=== PATIENT | male | born 1955 | race Caucasian/White ===

== ENCOUNTER 2018-10-16 09:24 | Emergency (ER) | payer OTHER, SELFPAY ==
[2018-10-16 09:36] VITALS: BP 136/68; PULSE 92; RESP 20; TEMP 38.6; O2SAT 97
--- NOTE | 2018-10-16 09:46 | ED.URI ---
HPI - URI/Sore Throat General Chief Complaint: Upper Respiratory Symptoms Stated Complaint: FLU? Time Seen by Provider: 10/16/18 09:46 Source: patient Mode of arrival: ambulatory Limitations: no limitations History of Present Illness HPI Narrative: This is a 63-year-old male who comes to the emergency department with complaint of fever, chills, cough that is had very mild productive sputum. Patient states that it started also scratching his throat. He states not really a sore throat. He has had a little bit of nasal congestion but feels like it is mostly in his chest. He does not really feel like it is hard for him to breathe but when he coughs it feels painful. If he is not coughing and does not really have any discomfort. Yesterday he had some nausea and dry heaves but none today. He has not had any constipation or diarrhea. He denies any urinary symptoms. He has a prior history of syphilis and was treated with penicillin. 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 He takes medication for hypertension as well as restless leg. Patient denies any allergies to medications. He used to smoke tobacco until he was about 30, he still smokes marijuana. Patient has been staying at the [facility] so he has had a lot of exposures to unknown people. Related Data Home Medications Medication Instructions Recorded Confirmed atorvastatin 10 mg PO QPM 10/16/18 10/16/18 cyclobenzaprine 10 mg PO BID PRN 10/16/18 10/16/18 doxazosin 2 - 3 mg PO QPM 10/16/18 10/16/18 metoprolol succinate 100 mg PO QPM 10/16/18 10/16/18 ropinirole 5 mg PO QPM 10/16/18 10/16/18 Previous Rx's Medication Instructions Recorded benzonatate [Tessalon Perles] 200 mg PO TID PRN #14 caplet 10/16/18 Allergies Allergy/AdvReac Type Severity Reaction Status Date / Time lisinopril Allergy Intermediate Swelling Verified 10/16/18 10:07 of Lip/Tongue/Throat Review of Systems Review of Systems ROS Unobtainable: All systems reviewed & are unremarkable except as noted in HPI and below Constitutional Reports body ache(s) (Mild), Denies chills, Reports fever(s), Denies lethargy and Denies weakness Cardiovascular Reports chest pain (With cough), Denies syncope, Denies edema, Denies irregular heart rhythm, Denies lightheadedness, Denies palpitations, Denies dyspnea, Denies dyspnea on exertion and Denies orthopnea Respiratory Reports chest congestion, Reports cough, Denies hemoptysis, Denies excessive phlegm production, Denies pain on inspiration, Reports pain with cough, Denies dyspnea, Denies dyspnea on exertion, Denies stridor and Denies wheezing Gastrointestinal Gastrointestinal: Denies abdominal pain, Denies change in bowel habits, Denies constipation, Denies diarrhea, Reports nausea (Resolved) and Reports vomiting (Dry heaves, resolved) Genitourinary Denies hematuria, Denies urinary frequency, Denies urinary hesitancy, Denies urinary incontinence and Denies urinary urgency Integumentary/Breasts Denies rash Neurologic Denies syncope and Denies weakness Endocrine Denies palpitations Allergic/Immunologic Denies wheezing PFSH Medical History HPV (human papilloma virus) anogenital infection (Chronic) Hypertension (Chronic) Restless leg (Chronic) Syphilis (acquired) (Resolved) Social History Smoking Status: Former smoker substance use type: marijuana Social History Smoking Status: Former smoker substance use type: marijuana Exam Narrative Exam Narrative: GEN: well nourished, well appearing male, alert and oriented x 3, patient appears to be in mild distress. HEENT: Atraumatic, pupils are equal round reactive to light, extraocular movements are intact, nares are clear, TMs are clear with no fluid, there is no conjunctival pallor. Throat is clear without any exudates, erythema, tonsillar enlargement or uvular deviation HEART: Regular rate and rhythm without murmur, clicks, rubs. LUNGS:Lungs clear to auscultation, no wheezes, rales, crackles, chest moves symmetrically ABD:bowel sounds normal, soft, non-tender, no guarding, rebound, rigidity, no masses noted, no hepatosplenomegaly MSCL: Non-tender, no muscle atrophy, muscles strength 5/5 upper and lower extremities, full range of motion, normal gait NEURO:CN 2-12 intact, sensation normal SKIN: no rashes. Initial Vital Signs Initial Vital Signs: Vital Signs Temperature 101.5 F H 10/16/18 09:36 Pulse Rate 92 H 10/16/18 09:36 Respiratory Rate 20 10/16/18 09:36 Blood Pressure 136/68 10/16/18 09:36 Pulse Oximetry 97 10/16/18 09:36 Course Orders Ordered: ED Orders 10/16/18 09:30 FLU A and B [Influenza A and B by PCR Rapid] Stat 10/16/18 09:53 XR chest 2V Stat Discontinued Medications Acetaminophen (Tylenol) 650 mg PO NOW ONE Stop: 10/16/18 10:00 Last Admin: 10/16/18 10:09 Dose: 650 mg Vital Signs - 8 hr 10/16/18 10:09 10/16/18 11:18 10/16/18 11:19 Temperature 101.5 F H 99.7 F H 99.7 F H Pulse Rate 79 Respiratory Rate 15 Blood Pressure [Right Arm] 137/79 [facility] - URI/Sore Throat Lab Data Attestation: I reviewed the patient's lab results. Lab Results 10/16/18 Range/Units 09:30 Influenza A & B (PCR) Negative (Negative) Imaging Data Chest x-ray: Radiologist's impression: [place] [address] XRay Report Signed Patient: KEENAN WINN [facility]#: [id number] : 5Acct:[id number] Age/Sex: 63 / MDate of Service: 10/16/18 Loc: ED Accession Number: [id number] Procedure: XR chest 2V Ordering Provider: Vandana Perdomo D.O. PROCEDURE: XR CHEST 2V INDICATIONS: fever, cough x 2 days, pain with cough. TECHNIQUE: 2 views of the chest were acquired. COMPARISON: None. FINDINGS: Surgical changes and devices: None. Lungs and pleura: Lungs are clear. No pleural effusions or pneumothorax. Mediastinum: Mediastinal contours are normal. Heart size is normal. Bones and chest wall: No suspicious bony abnormalities. Soft tissues appear unremarkable. IMPRESSION: No acute cardiopulmonary disease process. Dictated by: Osiris Sapp MD, PhD on 10/16/2018 at 10:05 Approved by: Osiris Sapp MD, PhD on 10/16/2018 at 10:06 [facility] Narrative Medical decision making narrative: Patient has fever here in the department. Improved with Tylenol. Patient has had a little bit of cold cough congestion and clear signs of pneumonia on chest x-ray. Symptomatically he has not had any productive sputum or signs of clear clinical pneumonia. Patient has not had any other symptoms that are consistent with other causes. Discussed with patient plan for watchful waiting, Tylenol and ibuprofen as needed for fevers and discussed reasons to return. Discharge Plan Departure Patient Disposition: Home Clinical Impression: Fever, URI (upper respiratory infection) Discharge Date/Time: 10/16/18 11:29 Interventions: ED Discharge Assessment Last Done: 10/16/18 11:28 Instructions: DI for Viral Upper Respiratory Infection -- Adult Activity Restrictions/Additional Instructions: Follow-up with primary care in the next 2-3 days for recheck if your symptoms are not starting to improve. Continue ibuprofen and/or Tylenol as needed for fevers. Take Tessalon Perles as prescribed, you may take 1-2 tablets every 6-8 hours as needed for cough. Make sure your getting plenty of fluids and staying hydrated. Return to the emergency department for persistent fevers, new chest pain, new shortness of breath, new abdominal pain, persistent vomiting, black or bloody stools, difficulty or painful urination or other new or concerning symptoms. Prescriptions: New benzonatate [Tessalon Perles] 100 mg capsule 200 mg PO TID PRN (Reason: cough) Qty: 14 RF: 0 No Action cyclobenzaprine 10 mg tablet 10 mg PO BID PRN (Reason: Spasms) RF: 0 atorvastatin 10 mg tablet 10 mg PO QPM RF: 0 doxazosin 1 mg tablet 2 - 3 mg PO QPM RF: 0 metoprolol succinate 100 mg tablet extended release 24 hr 100 mg PO QPM RF: 0 ropinirole 5 mg tablet 5 mg PO QPM RF: 0
--- NOTE | 2018-10-16 09:53 | DI.RAD.S_ITS ---
PROCEDURE: XR CHEST 2V INDICATIONS: fever, cough x 2 days, pain with cough. TECHNIQUE: 2 views of the chest were acquired. COMPARISON: None. FINDINGS: Surgical changes and devices: None. Lungs and pleura: Lungs are clear. No pleural effusions or pneumothorax. Mediastinum: Mediastinal contours are normal. Heart size is normal. Bones and chest wall: No suspicious bony abnormalities. Soft tissues appear unremarkable. IMPRESSION: No acute cardiopulmonary disease process. Dictated by: Osiris Sapp MD, PhD on 10/16/2018 at 10:05 Approved by: Osiris Sapp MD, PhD on 10/16/2018 at 10:06
--- NOTE | 2018-10-16 09:59 | ED_ITS ---
HPI - URI/Sore Throat General Chief Complaint: Upper Respiratory Symptoms Stated Complaint: FLU? Time Seen by Provider: 10/16/18 09:46 Source: patient Mode of arrival: ambulatory Limitations: no limitations History of Present Illness HPI Narrative: This is a 63-year-old male who comes to the emergency department with complaint of fever, chills, cough that is had very mild productive sputum. Patient states that it started also scratching his throat. He states not really a sore throat. He has had a little bit of nasal congestion but feels like it is mostly in his chest. He does not really feel like it is hard for him to breathe but when he coughs it feels painful. If he is not coughing and does not really have any discomfort. Yesterday he had some nausea and dry heaves but none today. He has not had any constipation or diarrhea. He denies any urinary symptoms. He has a prior history of syphilis and was treated with penicillin. 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 He takes medication for hypertension as well as restless leg. Patient denies any allergies to medications. He used to smoke tobacco until he was about 30, he still smokes marijuana. Patient has been staying at the [facility] so he has had a lot of exposures to unknown people. Related Data Home Medications Medication Instructions Recorded Confirmed atorvastatin 10 mg PO QPM 10/16/18 10/16/18 cyclobenzaprine 10 mg PO BID PRN 10/16/18 10/16/18 doxazosin 2 - 3 mg PO QPM 10/16/18 10/16/18 metoprolol succinate 100 mg PO QPM 10/16/18 10/16/18 ropinirole 5 mg PO QPM 10/16/18 10/16/18 Previous Rx's Medication Instructions Recorded benzonatate [Tessalon Perles] 200 mg PO TID PRN #14 caplet 10/16/18 Allergies Allergy/AdvReac Type Severity Reaction Status Date / Time lisinopril Allergy Intermediate Swelling Verified 10/16/18 10:07 of Lip/Tongue/Throat Review of Systems Review of Systems ROS Unobtainable: All systems reviewed & are unremarkable except as noted in HPI and below Constitutional Reports body ache(s) (Mild), Denies chills, Reports fever(s), Denies lethargy and Denies weakness Cardiovascular Reports chest pain (With cough), Denies syncope, Denies edema, Denies irregular heart rhythm, Denies lightheadedness, Denies palpitations, Denies dyspnea, Denies dyspnea on exertion and Denies orthopnea Respiratory Reports chest congestion, Reports cough, Denies hemoptysis, Denies excessive phlegm production, Denies pain on inspiration, Reports pain with cough, Denies dyspnea, Denies dyspnea on exertion, Denies stridor and Denies wheezing Gastrointestinal Gastrointestinal: Denies abdominal pain, Denies change in bowel habits, Denies constipation, Denies diarrhea, Reports nausea (Resolved) and Reports vomiting (Dry heaves, resolved) Genitourinary Denies hematuria, Denies urinary frequency, Denies urinary hesitancy, Denies urinary incontinence and Denies urinary urgency Integumentary/Breasts Denies rash Neurologic Denies syncope and Denies weakness Endocrine Denies palpitations Allergic/Immunologic Denies wheezing PFSH Medical History HPV (human papilloma virus) anogenital infection (Chronic) Hypertension (Chronic) Restless leg (Chronic) Syphilis (acquired) (Resolved) Social History Smoking Status: Former smoker substance use type: marijuana Social History Smoking Status: Former smoker substance use type: marijuana Exam Narrative Exam Narrative: GEN: well nourished, well appearing male, alert and oriented x 3, patient appears to be in mild distress. HEENT: Atraumatic, pupils are equal round reactive to light, extraocular movements are intact, nares are clear, TMs are clear with no fluid, there is no conjunctival pallor. Throat is clear without any exudates, erythema, tonsillar enlargement or uvular deviation HEART: Regular rate and rhythm without murmur, clicks, rubs. LUNGS:Lungs clear to auscultation, no wheezes, rales, crackles, chest moves symmetrically ABD:bowel sounds normal, soft, non-tender, no guarding, rebound, rigidity, no masses noted, no hepatosplenomegaly MSCL: Non-tender, no muscle atrophy, muscles strength 5/5 upper and lower extremities, full range of motion, normal gait NEURO:CN 2-12 intact, sensation normal SKIN: no rashes. Initial Vital Signs Initial Vital Signs: Vital Signs Temperature 101.5 F H 10/16/18 09:36 Pulse Rate 92 H 10/16/18 09:36 Respiratory Rate 20 10/16/18 09:36 Blood Pressure 136/68 10/16/18 09:36 Pulse Oximetry 97 10/16/18 09:36 Course Orders Ordered: ED Orders 10/16/18 09:30 FLU A and B [Influenza A and B by PCR Rapid] Stat 10/16/18 09:53 XR chest 2V Stat Discontinued Medications Acetaminophen (Tylenol) 650 mg PO NOW ONE Stop: 10/16/18 10:00 Last Admin: 10/16/18 10:09 Dose: 650 mg Vital Signs - 8 hr 10/16/18 10:09 10/16/18 11:18 10/16/18 11:19 Temperature 101.5 F H 99.7 F H 99.7 F H Pulse Rate 79 Respiratory Rate 15 Blood Pressure [Right Arm] 137/79 [facility] - URI/Sore Throat Lab Data Attestation: I reviewed the patient's lab results. Lab Results 10/16/18 Range/Units 09:30 Influenza A & B (PCR) Negative (Negative) Imaging Data Chest x-ray: Radiologist's impression: [place] [address] XRay Report Signed Patient: KEENAN WINN [facility]#: [id number] : 5Acct:[id number] Age/Sex: 63 / MDate of Service: 10/16/18 Loc: ED Accession Number: [id number] Procedure: XR chest 2V Ordering Provider: Vandana Perdomo D.O. PROCEDURE: XR CHEST 2V INDICATIONS: fever, cough x 2 days, pain with cough. TECHNIQUE: 2 views of the chest were acquired. COMPARISON: None. FINDINGS: Surgical changes and devices: None. Lungs and pleura: Lungs are clear. No pleural effusions or pneumothorax. Mediastinum: Mediastinal contours are normal. Heart size is normal. Bones and chest wall: No suspicious bony abnormalities. Soft tissues appear unremarkable. IMPRESSION: No acute cardiopulmonary disease process. Dictated by: Osiris Sapp MD, PhD on 10/16/2018 at 10:05 Approved by: Osiris Sapp MD, PhD on 10/16/2018 at 10:06 [facility] Narrative Medical decision making narrative: Patient has fever here in the department. Improved with Tylenol. Patient has had a little bit of cold cough congestion and clear signs of pneumonia on chest x-ray. Symptomatically he has not had any productive sputum or signs of clear clinical pneumonia. Patient has not had any other symptoms that are consistent with other causes. Discussed with patient plan for watchful waiting, Tylenol and ibuprofen as needed for fevers and discussed reasons to return. Discharge Plan Departure Patient Disposition: Home Clinical Impression: Fever, URI (upper respiratory infection) Discharge Date/Time: 10/16/18 11:29 Interventions: ED Discharge Assessment Last Done: 10/16/18 11:28 Instructions: DI for Viral Upper Respiratory Infection -- Adult Activity Restrictions/Additional Instructions: Follow-up with primary care in the next 2-3 days for recheck if your symptoms are not starting to improve. Continue ibuprofen and/or Tylenol as needed for fevers. Take Tessalon Perles as prescribed, you may take 1-2 tablets every 6-8 hours as needed for cough. Make sure your getting plenty of fluids and staying hydrated. Return to the emergency department for persistent fevers, new chest pain, new shortness of breath, new abdominal pain, persistent vomiting, black or bloody stools, difficulty or painful urination or other new or concerning symptoms. Prescriptions: New benzonatate [Tessalon Perles] 100 mg capsule 200 mg PO TID PRN (Reason: cough) Qty: 14 RF: 0 No Action cyclobenzaprine 10 mg tablet 10 mg PO BID PRN (Reason: Spasms) RF: 0 atorvastatin 10 mg tablet 10 mg PO QPM RF: 0 doxazosin 1 mg tablet 2 - 3 mg PO QPM RF: 0 metoprolol succinate 100 mg tablet extended release 24 hr 100 mg PO QPM RF: 0 ropinirole 5 mg tablet 5 mg PO QPM RF: 0
[2018-10-16 10:00] LABS: Influenza A and B by PCR Rapid Negative (Negative)
[2018-10-16 10:09] VITALS: TEMP 38.6
[2018-10-16] MEDS: ACETAMINOPHEN 325 MG TABLET 650 MG PO (10:09)
[2018-10-16 11:18] VITALS: BP 137/79; PULSE 79; RESP 15; TEMP 37.6
[2018-10-16 11:19] VITALS: TEMP 37.6
== END 2018-10-16 11:29 | disposition home or self-care (01) ==
PROVIDERS: Emergency Provider Emergency Medicine
DX: R06.9 Unspecified abnormalities of breathing (principal); R50.9 Fever, unspecified
CPT/HCPCS: 71046; 87400; 99282; 99283